=== PATIENT | female | born 1980 | race Caucasian/White ===

== ENCOUNTER 2020-02-23 19:34 | Emergency (ER) | payer MEDICAID ==
[~2020-02-23] VITALS: Ht 162.6 cm; Wt 72.2 kg
--- NOTE | 2020-02-23 19:45 | NUR ---
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
--- NOTE | 2020-02-23 19:49 | NUR ---
CLINICAL RESOURCE COORDINATOR: PT TO ROOM FROM LOBBY
--- NOTE | 2020-02-23 19:59 | NUR ---
PT CAME IN CO OF EPIGASTRIC PAIN THAT STARTED LAST NIGHT. PT REPORTS SHE HAS BEEN HAVING BLACK TARRY STOOL. PT ALSO STATES SHE IS NASEOUS AND HAS BEEN VOMITTING UP "BLACK BILE". PT IS RESTING IN GURNEY. EKG COMPLETE. LABS DRAWN.
[2020-02-23 20:23] LABS: ALANINE AMINOTRANSFERASE 76 U/L (12-78); ALBUMIN 4.4 g/dL (3.4-5.0); ANION GAP 8 mmol/L (5-15); BASOPHILS # (AUTO) 0.02 x10^3/uL (0-0.1); BASOPHILS % (AUTO) 0 % (0-1); CALCIUM 9.7 mg/dL (8.5-10.1); CHLORIDE 105 mmol/L (98-107); CREATININE 0.79 mg/dL (0.55-1.02); EOSINOPHILS # (AUTO) 0.14 x10^3/uL (0-0.4); EOSINOPHILS % (AUTO) 2 % (1-7); LYMPHOCYTES # (AUTO) 1.21 x10^3/uL (1-3.4); LYMPHOCYTES % (AUTO) 20 % (22-44); MD NO; MEAN CORPUSCULAR HEMOGLOBIN 33.3 pg (27.0-34.8); MEAN CORPUSCULAR HGB CONC 33.6 g/dL (32.4-35.8); MEAN PLATELET VOLUME 8.2 fL (7.4-10.4); MONOCYTES # (AUTO) 0.58 x10^3/uL (0.2-0.8); MONOCYTES % (AUTO) 10 % (2-9); NEUTROPHILS % (AUTO) 67 % (42-75); PLATELET COUNT 335 x10^3/uL (130-400); RED BLOOD COUNT 4.85 x10^6/uL (3.82-5.3); RED CELL DISTRIBUTION WIDTH 13.5 % (9.6-15.2)
[2020-02-23] MEDS ORDERED: ONDANSETRON 2MG/ML, 2ML ONE (20:24)
[2020-02-23] MEDS ORDERED: MORPHINE SULFATE 4 MG/ML, 1ML ONE (20:25)
[2020-02-23 20:27] LABS: ALKALINE PHOSPHATASE 111 U/L (45-117); BILIRUBIN,TOTAL 0.6 mg/dL (0.2-1.0); TOTAL PROTEIN 7.8 g/dL (6.4-8.2)
[2020-02-23] MEDS ORDERED: MORPHINE SULFATE 4 MG/ML, 1ML IVPush PRN (20:30)
[2020-02-23] MEDS ORDERED: SODIUM CHLORIDE FLUSH 10ML SYR IVF ONE (20:30)
[2020-02-23] MEDS ORDERED: ONDANSETRON 2MG/ML, 2ML IVPush ONE (20:30)
[2020-02-23] MEDS ORDERED: SODIUM CHLORIDE 0.9% 1,000ML IVBOLUS ONE (20:30)
--- NOTE | 2020-02-23 20:32 | NUR ---
PROVIDER IS BEDSIDE FOR ASSESSMENT. PT MEDICATED PER MAR
[2020-02-23 21:15] LABS: MICROSCOPIC AUTO
[2020-02-23 21:28] VITALS: BP 154/94
--- NOTE | 2020-02-23 21:28 | NUR ---
PT RESTING IN [facility]. AWAITING LAB RESULTS
== END 2020-02-23 21:56 | disposition home or self-care (01) ==
LOC: ED 20:04
DX: K29.20 Alcoholic gastritis without bleeding (principal); N30.00 Acute cystitis without hematuria; E87.6 Hypokalemia; R94.31 Abnormal electrocardiogram [ECG] [EKG]
CPT/HCPCS: 36415; 71045; 80053; 81001; 83690; 84703; 85025; 87077; 87086; 93005; 96361; 96374; 96375; 99285; J2270; J2405; J7030; 87186